=== PATIENT | female | born 1940 | race Two or more races ===

== ENCOUNTER 2018-02-12 02:24 | Emergency (ER) | payer OTHER ==
[~2018-02-12] VITALS: Ht 154.9 cm; Wt 59.0 kg
[2018-02-12] MEDS ORDERED: InsuLIN REG 1unit/0.01ml Soln (100units/ml) IV ONE (03:15)
[2018-02-12] MEDS ORDERED: SODIUM CHLORIDE 0.9% 3,000 ML IV ONE (03:15)
[2018-02-12 03:16] LABS: Basophils # (auto) 0.1 uL; Eosinophils # (auto) 0.1 uL; Hematocrit 42.5 % (36.0-46.0); Hemoglobin 14.5 g/dL (12.2-16.2); Lymphocytes # (auto) 0.9 uL; Lymphocytes % (auto) 15.6 % (10.0-50.0); Mean Corpuscular Hemoglobin 29.6 pg (28.0-32.0); Mean Corpuscular Hgb Conc. 34.1 g/dL (32.0-36.0); Mean Corpuscular Volume 86.7 fL (80.0-100.0); Monocytes # (auto) 0.5 uL; Monocytes % (auto) 8.8 % (0.0-12.0); Neutrophils # (auto) 4.1 uL; Neutrophils % (auto) 72.6 % (37.0-80.0); Nucleated Red Blood Cells % 0.1 %; Platelet Count (auto) 122 10^3/uL (140-450); Red Blood Cells 4.91 10^6/uL (4.0-5.20); White Blood Cell 5.7 10^3/uL (4.4-10.8)
[2018-02-12 03:25] LABS: Alanine Aminotransferase 20 U/L (13-56); Albumin 3.8 g/dL (3.4-5.0); Anion Gap 9 (5-15); Aspartate Aminotransferase 9 U/L (15-37); Blood Urea Nitrogen 17 mg/dL (7-18); Calcium 8.7 mg/dL (8.5-10.1); Carbon Dioxide 26 mmol/L (21-32); Chloride 100 mmol/L (98-107); Glucose 325 mg/dL (74-106); Magnesium 1.8 mg/dL (1.6-2.6); Potassium 3.8 mmol/L (3.5-5.1); Sodium 135 mmol/L (136-145)
[2018-02-12 03:30] LABS: Alkaline Phosphatase 116 U/L (45-117); BUN/Creatinine Ratio 24.6; Bilirubin, Total 0.6 mg/dL (0.2-1.0); GFR African American 106 mL/min; GFR Non-African American 88 mL/min; Total Protein 7.4 g/dL (6.4-8.2)
[2018-02-12 04:02] VITALS: BP 125/53
== END 2018-02-12 04:49 | disposition home or self-care (01) ==
LOC: ER 02:24
DX: E11.9 Type 2 diabetes mellitus without complications (principal); Z88.5 Allergy status to narcotic agent
CPT/HCPCS: 36415; 80053; 82962; 83036; 83735; 84443; 84484; 85025; 96374; 99284; J1815; J7030

== ENCOUNTER 2022-04-24 11:44 | Emergency (ER) | payer OTHER ==
[~2022-04-24] VITALS: Ht 160 cm; Wt 54.5 kg
[2022-04-24] MEDS ORDERED: SODIUM CHLORIDE 0.9% 1,000 ML IV ONE (12:00)
[2022-04-24 12:27] LABS: Basophils # (auto) 0 10 ^3/uL (0-0.2); Eosinophils # (auto) 0 10 ^3/uL (0-0.8); Neutrophils # (auto) 2.3 10 ^3/uL (1.6-8.6); White Blood Cell 3.8 10^3/uL (4.4-10.8)
[2022-04-24 12:29] LABS: Basophils % (auto) 1.2 % (0.0-2.0); Eosinophils % (auto) 0.4 % (0.0-7.0); Hematocrit 26.8 % (36.0-46.0); Hemoglobin 9.2 g/dL (12.2-16.2); Lymphocytes # (auto) 1.1 10 ^3/uL (0.4-5.4); Lymphocytes % (auto) 28.4 % (10.0-50.0); Mean Corpuscular Hemoglobin 34.6 pg (28.0-32.0); Mean Corpuscular Hgb Conc. 34.5 g/dL (32.0-36.0); Mean Corpuscular Volume 100.5 fL (80.0-100.0); Monocytes # (auto) 0.3 10 ^3/uL (0-1.3); Monocytes % (auto) 9.1 % (0.0-12.0); Neutrophils % (auto) 60.9 % (37.0-80.0); Nucleated Red Blood Cells % 2.4 %; Red Blood Cells 2.67 10^6/uL (4.0-5.20); Red Cell Distribution Width 15.1 % (11.8-14.3)
[2022-04-24 12:41] LABS: Albumin 3.1 g/dL (3.4-5.0); Calcium 8.5 mg/dL (8.5-10.1); Potassium 4.4 mmol/L (3.5-5.1)
[2022-04-24 12:44] LABS: BUN/Creatinine Ratio 26.5; Bilirubin, Total 1.4 mg/dL (0.2-1.0); Total Protein 5.8 g/dL (6.4-8.2)
[2022-04-24] MEDS ORDERED: AZITHROMYCIN 500MG/ 250ML 250 ML IV ONE (15:45)
[2022-04-24] MEDS ORDERED: cefTRIAXone 1GM/50ML D5W 50 ML IV ONE (15:45)
[2022-04-24 15:54] LABS: Urine WBC None Seen /hpf (0 - 5)
[2022-04-24 16:05] LABS: Urine Bacteria FEW /hpf (None Seen); Urine Blood 1+ /uL (Negative); Urine Budding Yeast MANY /hpf (None Seen); Urine Hyaline Cast FEW /lpf (0 - 2); Urine Mucus FEW (None Seen); Urine Specific Gravity 1.021 (1.001-1.035)
[2022-04-24] MEDS ORDERED: LEVO-28 PO (16:59)
[2022-04-24 18:10] VITALS: BP 135/66
== END 2022-04-24 18:31 | disposition home or self-care (01) ==
LOC: ER 11:44 → EDBD 11:44 → ER 18:29
DX: R55 Syncope and collapse (principal); J18.9 Pneumonia, unspecified organism; E11.9 Type 2 diabetes mellitus without complications; E78.5 Hyperlipidemia, unspecified; Z20.822 Contact with and (suspected) exposure to COVID-19
CPT/HCPCS: 36415; 70450; 71045; 80053; 81001; 84484; 85025; 87426; 96361; 96365; 99285; J0696; J7030